=== PATIENT | female | born 1945 | race Caucasian/White ===

== ENCOUNTER 2017-07-05 08:48 | Day surgery (SDC) | payer MEDICARE, OTHER ==
[2017-07-04 11:11] VITALS: BMI 23.6
[~2017-07-05 08:48] MED LIST: ALPRAZolam 0.25 MG TAB PO PRN; ALPRAZolam 0.5 MG TAB PO PRN; ASPIRIN 325 MG TAB PO STA; ATORVASTATIN 80 MG TAB PO STA; NITROGLYCERIN SL TABS 0.4 MG TAB SUBLINGUAL PRN; SODIUM CHLORIDE 0.9% 1,000 ML in EMPTY BAG 1 BAG IV ONE
[2017-07-05 10:09] LABS: Anion Gap 11 mmol/L; Blood Urea Nitrogen 16 mg/dL (7-17); Calcium 8.9 mg/dL (8.4-10.2); Carbon Dioxide 22 mmol/L (22-30); Chloride 109 mmol/L (98-107); Glucose 98 mg/dL (74-99); Non-African American GFR(MDRD) >60 (>60 ml/min/1.73 sqM); Potassium 4.4 mmol/L (3.5-5.1); Sodium 142 mmol/L (137-145)
[2017-07-05] MEDS ORDERED: LIDOCAINE 2% INJ 20 MG/ML (20 ML MDV) ONE (10:51)
[2017-07-05] MEDS ORDERED: diphenhydrAMINE 50 MG/ML 1 ML VIAL ONE (10:52)
[2017-07-05] MEDS ORDERED: MIDAZOLAM 2 MG/2 ML VIAL ONE (10:52)
[2017-07-05] MEDS ORDERED: IV FLUID CONTINUATION 850 ML IV ONE (10:56)
[2017-07-05] MEDS ORDERED: diphenhydrAMINE 50 MG/ML 1 ML VIAL IVP ONE (10:56)
[2017-07-05] MEDS: MIDAZOLAM 2 MG/2 ML VIAL IVP ONE ×2 (10:56→11:07)
[2017-07-05] MEDS ORDERED: LIDOCAINE 2% INJ 20 MG/ML SQ ONE (11:06)
[2017-07-05] MEDS ORDERED: RX INFO: IV CONTRAST WAS GIVEN 1 EACH MISC MISCELLANE PRN (11:26)
[2017-07-05 11:27] LABS: Site PA
[2017-07-05 11:29] LABS: Site RA
[2017-07-05] MEDS ORDERED: ALBUTEROL INHALER 60 PUFF/8 GM INHALER INHALATION PRN (11:30)
[2017-07-05] MEDS ORDERED: ALBUTEROL NEBULIZED 2.5 MG/3 ML INHALATION PRN (11:30)
[2017-07-05] MEDS ORDERED: SODIUM CHLORIDE 0.9% 1,000 ML IV SCH (11:30)
[2017-07-05 11:31] LABS: Site RV
[2017-07-05 11:43] LABS: Basophils % (A) 0 %; CH 30.2; CHCM 32.5; Eosinophils # (A) 0.1 k/uL (0-0.7); Eosinophils % (A) 2 %; HCT 36.5 % (34.0-46.0); HDW 2.54; Luc # (Auto) 0.09; Luc % (Auto) 2; Lymphocytes # (A) 1.7 k/uL (1.0-4.8); Lymphocytes % (A) 38 %; MCH 30.6 pg (25.0-35.0); MCHC 32.8 g/dL (31.0-37.0); MCV 93.2 fL (80.0-100.0); Mean Platelet Volume 7.3; Monocytes # (A) 0.3 k/uL (0-1.0); Monocytes % (A) 8 %; Neutrophils # (A) 2.2 k/uL (1.3-7.7); Neutrophils % (A) 50 %; RBC 3.91 m/uL (3.80-5.40); RDW 13.1 % (11.5-15.5); WBC 4.4 k/uL (3.8-10.6); WBC (Perox) 4.77
[2017-07-05 12:15] VITALS: TEMP 98
--- NOTE | 2017-07-05 12:33 | CC ---
CARDIAC CATHETERIZATION REPORT DATE OF SERVICE: 07/05/2017 PROCEDURE: Right heart catheterization with thermodilution and Kurt cardiac outputs. Performed by Dr. Roger Sanchez. CLINICAL INFORMATION: Mrs. Gladys Erickson is a 71-year-old lady with a history of hypertension, history of shortness of breath, Seizure disorder with increasing symptoms of shortness of breath, was seen and evaluated by pulmonary hypertension specialist, Dr. White. She was advised a right heart catheterization. The risks, benefits, options and rationale were explained to the patient in great detail. PROCEDURE: Under local anesthesia and strict aseptic precautions, an 8-Ecuadorean introducer was placed in the right femoral vein. I used a balloon tipped rotation catheter and performed a right heart cath. I checked the pressures in the right atrium, right ventricle, pulmonary artery and pulmonary capillary wedge pressures were obtained. I also obtained a right atrial, right ventricular and pulmonary arterial saturations. Using a zoomed 96% arterial saturation, I will perform a cardiac output by Kurt method. The thermodilution cardiac output was also performed. The thermodilution cardiac output was 4.67 L. Patient tolerated the procedure well. The sheath was then taken out and she was sent to the room in a stable condition. CARDIAC CATHETERIZATION FINDINGS: Right atrial pressure was 4 mmHg. Right ventricular pressure was 30/4. Pulmonary capillary wedge pressure was 9 mmHg. Pulmonary arterial pressure was 30/10 with a mean of 17. Transpulmonary gradient was 8 mmHg suggesting that there is no evidence of primary pulmonary hypertension. The Kurt cardiac output was about 4 L. The thermodilution cardiac output was 4.67 L. There was no oxygen step-up. There is no evidence of any significant pulmonary hypertension. The pulmonary vascular resistance was 1.7 Wood units. FINAL IMPRESSION: The procedure was performed uneventfully. There was no evidence of any significant pulmonary hypertension. Results were discussed with the patient and family and she will be discharged later on today. Moderate conscious sedation was provided for a total duration of 30 minutes. Please send a copy of this to Dr. Abebe. ' MMDELIOL / LORIN: [id number] /
--- NOTE | 2017-07-05 12:33 | LTR ---
Date: DATE OF SERVICE: 07/05/2017 RE: Gladys Erickson Dear Dr. Abebe; Thank you for the opportunity to participate in the care of Mrs. Gladys Erickson. I am pleased to report to you that her right heart cath was performed uneventfully. She does not have any significant pulmonary hypertension. I expect she will be discharged later on today. Sincerely, MD MORIAH Edmonds / MADELEINE: [id number] /
--- NOTE | 2017-07-05 12:39 | LTR ---
Date: DATE OF SERVICE: 07/05/2017 RE: Gladys Erickson Dear Dr. Deng; Thank you for the opportunity to participate in the care of Mrs. Gladys Erickson. Please find enclosed my cardiac cath report for your records. The right heart cath as performed uneventfully. Patient does not have any significant pulmonary hypertension. The PA pressures were 30/10 with a mean of 17 and the wedge was 9 mmHg. Transpulmonary gradient was about 8 mmHg and there is no evidence of any pulmonary hypertension. Thank you for your referral and please call for questions. With kindest regards. Sincerely yours, Alexa Sanchez MD MMDELIOL / LORIN: [id number] /
[2017-07-05 14:17] VITALS: RESP 18
[2017-07-05 17:15] VITALS: PULSE 72
[2017-07-05 17:23] VITALS: BP 157/60
[2017-07-05] MEDS ORDERED: TOPIRAMATE 100 MG PO SCH (21:00)
[2017-07-05] MEDS ORDERED: MONTELUKAST 10 MG TAB PO SCH (21:00)
[2017-07-05] MEDS ORDERED: MORPHINE SULFATE IR 15 MG TABLET PO SCH (21:00)
[2017-07-05] MEDS ORDERED: PHENYTOIN SODIUM EXTENDED 100 MG CAP PO SCH (21:00)
[2017-07-05] MEDS ORDERED: busPIRone HCl 10 MG TAB PO SCH (21:00)
[2017-07-06] MEDS ORDERED: [UNRECOGNIZED DRUG - OTHER] PO SCH (09:00)
[2017-07-06] MEDS ORDERED: DULoxetine HCL 60 MG CAPSULE.DR PO SCH (09:00)
[2017-07-06] MEDS ORDERED: ESOMEPRAZOLE MAGNESIUM PO SCH (09:00)
== END 2017-07-05 17:00 | disposition home or self-care (01) ==
LOC: CATHCVL 08:48
PROVIDERS: ATTEND Internal Medicine Interventional Cardiology
DX: I27.2 Other secondary pulmonary hypertension (principal); J45.20 Mild intermittent asthma, uncomplicated; G47.33 Obstructive sleep apnea (adult) (pediatric); Z79.891 Long term (current) use of opiate analgesic; Z99.81 Dependence on supplemental oxygen; Z79.899 Other long term (current) drug therapy; Z88.2 Allergy status to sulfonamides; Z88.7 Allergy status to serum and vaccine; Z88.1 Allergy status to other antibiotic agents; Z91.040 Latex allergy status; Z88.5 Allergy status to narcotic agent; Z88.0 Allergy status to penicillin; Z91.013 Allergy to seafood
CPT/HCPCS: 93451; 80048; 85018; 82810; 85025; 99152; 99153 ×2; C1894 ×2; C1769 ×2; J2001; J2250; J1200

== ENCOUNTER 2019-01-28 07:14 | Day surgery (SDC) | payer MEDICARE, OTHER ==
[2019-01-24 09:06] VITALS: BMI 27.4
[~2019-01-28 07:14] MED LIST changes: -ALPRAZolam 0.25 MG TAB PO PRN; -ALPRAZolam 0.5 MG TAB PO PRN; -ASPIRIN 325 MG TAB PO STA; -ATORVASTATIN 80 MG TAB PO STA; +LACTATED RINGERS 1,000 ML IV SCH; +LIDOCAINE 1% 20 ML VIAL (10MG/ML) FOR IV START INTRADERMA PRN; -NITROGLYCERIN SL TABS 0.4 MG TAB SUBLINGUAL PRN; -SODIUM CHLORIDE 0.9% 1,000 ML in EMPTY BAG 1 BAG IV ONE
[2019-01-28 07:36] VITALS: TEMP 97
[2019-01-28] MEDS ORDERED: PROPOFOL 10 MG/ML 20 ML VIAL IV ONE (08:29)
[2019-01-28] MEDS ORDERED: LIDOCAINE 1% INJ 10MG/ML (20 ML MDV) ONE (08:29)
--- NOTE | 2019-01-28 08:55 | P.PCN ---
Date of Procedure: 01/28/19 Procedure(s) Performed: Procedure: Esophagogastroduodenoscopy and biopsy. Preoperative diagnosis: Gastroesophageal reflux and dysphagia. Postoperative diagnosis: 1. Small sliding hiatal hernia with no obvious esophagitis or complicated reflux disease. 2. Gastritis. 3. Biopsy obtained from the duodenum, antrum and esophagus. Preparation and sedation: Was provided by anesthesia. Brief clinical history: The patient is a 73-year-old female who was evaluated in the office earlier this month for chronic reflux symptoms. The patient has chronic globus sensation and complains of dysphagia and odynophagia with bread and meat. Her last EGD was in 2011. She is scheduled for this evaluation to assess for complicated reflux disease or other pathology. She has lost 10 pounds in the last 3 months. Procedure: With the patient on her left lateral decubitus position and after informed consent and adequate sedation, I passed the Olympus-GIF H190 video upper endoscope through the cricopharyngeus down the esophagus. GE junction was at 40 cm from the incisors and there was a small sliding hiatal hernia but no obvious esophagitis or complicated reflux disease. The endoscope was then passed into the stomach which was insufflated with air and inspected in detail including the retroflex view in the cardia. There was some mottling and erythema in the antrum but no ulcers or erosions. There was some erythema in the stomach and few small regenerative fundic polyps but no ulcers or tumors. Pyloric channel, duodenal bulb, post bulbar area and descending duodenum appeared within normal limits. I obtained biopsies from the duodenum, antrum and esophagus then the endoscope was withdrawn. The patient tolerated the procedure well. Plan: The patient was reassured. Will await biopsy results and make further plans based on her course and biopsy results. She will follow-up in the office as planned.
[2019-01-28 09:45] VITALS: RESP 18
[2019-01-28 09:47] VITALS: BP 124/77; PULSE 65
== END 2019-01-28 09:30 | disposition home or self-care (01) ==
LOC: ORWHC2ENDO 07:14
DX: K21.9 Gastro-esophageal reflux disease without esophagitis (principal); R63.4 Abnormal weight loss; K44.9 Diaphragmatic hernia without obstruction or gangrene; K29.50 Unspecified chronic gastritis without bleeding; Z68.27 Body mass index [BMI] 27.0-27.9, adult; J45.909 Unspecified asthma, uncomplicated; Z86.73 Personal history of transient ischemic attack (TIA), and cerebral infarction without residual deficits; M79.7 Fibromyalgia; M19.90 Unspecified osteoarthritis, unspecified site; G47.33 Obstructive sleep apnea (adult) (pediatric); Z99.81 Dependence on supplemental oxygen; Z88.5 Allergy status to narcotic agent; Z88.0 Allergy status to penicillin; Z88.2 Allergy status to sulfonamides; Z88.8 Allergy status to other drugs, medicaments and biological substances; Z91.041 Radiographic dye allergy status; Z91.040 Latex allergy status; R56.9 Unspecified convulsions; Z79.82 Long term (current) use of aspirin; Z79.891 Long term (current) use of opiate analgesic; Z79.899 Other long term (current) drug therapy
CPT/HCPCS: 43239; J2001; J2704; 88305

== ENCOUNTER → 2019-10-05 | Outpatient (CLI) | payer MEDICARE, OTHER ==
--- NOTE | 2019-10-05 10:11 | MR ---
EXAMINATION TYPE: MR lumbar spine wo con DATE OF EXAM: 10/05/2019 COMPARISON: NONE HISTORY: Low back pain TECHNIQUE: Multiplanar, multisequence imaging of the lumbar spine is performed without IV contrast. FINDINGS: Slight dextroconvex scoliotic curvature centered at L2-L3 level. Sagittal images of the lum bar spine show vertebral body height to appear satisfactory. Multilevel disc desiccation with moderat e disc space narrowing along with mild to moderate anterior spurring and heterogeneous Modic type II endplate changes L2-L3 level. Additional mild to moderate multilevel anterior spurring. The conus med ullaris is normal in position and signal ending L1-L2 disc space. Axial images show mild facet arthropathy at T12-L1 level.. Axial images at L1-L2 show mild/moderate broad-based disc bulge effacing the anterior thecal sac with mild to moderate facet degenerative changes and ligamentous flavum hypertrophy effacing posterior la teral thecal sac on axial image 25. Patent bilateral neural foramina. Axial images at L2-L3 level show moderate broad disc bulge effacing anterior thecal sac and mild face t arthropathy bilaterally. There is mild to moderate left and mild right-sided neural foraminal narro wing noted. Axial images at the L3-L4 level show mild/moderate facet degenerative changes and ligament flavum hyp ertrophy effacing posterior lateral thecal sac with mild/moderate broad disc bulge effacing the anter ior thecal sac. There is mild left greater than right bilateral neural foraminal narrowing. Axial images at L4-L5 level moderate to advanced facet degenerative changes and ligament hypertrophy effacing posterior lateral thecal sac. There is moderate broad-based disc bulge effacing the anterior thecal sac. Bilateral neural foramina are patent. Axial images at the L5-S1 levels moderate facet degenerative changes with central disc protrusion min imally effacing anterior thecal sac, bilateral neural foramina are patent. There is some mild generalized posterior paraspinal musculature atrophy bilaterally. Some motion meenakshi fact degradation noted. IMPRESSION: Multilevel degenerative changes in the lumbar spine as detailed above..
== END | disposition home or self-care (01) ==
LOC: RADMRIMAIN 09:12
PROVIDERS: ATTEND Physical Medicine & Rehabilitation
DX: M47.816 Spondylosis without myelopathy or radiculopathy, lumbar region (principal); G89.4 Chronic pain syndrome
CPT/HCPCS: 72148

== ENCOUNTER → 2021-06-01 | Outpatient (CLI) | payer MEDICARE ==
--- NOTE | 2021-06-01 12:03 | BD ---
EXAMINATION TYPE: Axial Bone Density PT ON O2 WITH WHEELIE WALKER AND [facility] DOG DATE OF EXAM: 06/01/2021 COMPARISON: NONE CLINICAL HISTORY: 75 YR OLD FEMALE.....ICD-10 CODE: Z78.0 POST TANYA W/O HRT Height: 64.7 Weight: 170 FRAX RISK QUESTIONS: Glucocorticoids (More than 3mos): YES (Ex: prednisone, prednisolone, methylprednisolone, dexamethasone, and hydrocortisone). History of Fracture in Adulthood: YES Secondary Osteoporosis: YES 3. Menopause before 45: YES Rheumatoid Arthritis: YES RISK FACTORS HISTORY OF: RT THUMB AND WRIST History of Wrist Fracture: BROKEN RT WRIST, AND LT WRIST SURG AN ADULT Surgery to Spine TO NECK ONLY Family History of Osteoporosis: UNSURE Postmenopausal woman: HYST AT AGE 30, WITH HORMONES FOR 1-2 YRS Lost more than 2 inches in height since high school: YES Poor Health: YES, USING SERVICE DOG HERE AND NOW Hyperparathyroidism: NO Adrenal Insufficiency: NO RHEUMATOID ARTHRITIS MEDICATIONS: Prednisone or other steroids: YES, ASTHMA, COPD, USING OXYGEN FOR MANY YRS Thyroid Medications: NONE NOW Osteoporosis Medications: NONE, INTERFERES WITH DILANTIN, SEIZURE MEDS Additional Medications: TOPAMAX, DILANTIN (SEIZURES), BUSPIRONE, REFLUX MED, VIT D, Additional History: SEIZURES, ASTHMA, ARTHRITIS, FIBROMYALGIA, RA EXAM MEASUREMENTS: Bone mineral densitometry was performed using the [facility] [employer] [facility]. Bone mineral density as measured about the Lumbar spine is: ----- L1-L4(G/cm2): 1.021 T Score Values are as follows: ----- L1: -1.1 ----- L2: -1.8 ----- L3: -1.5 ----- L4: -1.2 ----- L1-L4: -1.3 Bone mineral density FIRST BONE DENSITY AT [facility] Bone mineral density about the R hip (g/cm2): 0.762 Bone mineral density about the L hip (g/cm2): 0.770 T Score values are as follows: -----R Neck: -2.1 -----L Neck: -2.3 -----R Total: -2.0 -----L Total: -1.9 Bone mineral density FIRST BONE DENSITY AT [facility] FRAX%s: THERE IS A 32.9% CHANCE FOR A MAJOR OSTEOPOROTIC FX AND A 10.5% FOR HIP......PROBABILITY F OR FX IN 10 YRS TIME IMPRESSION: Osteopenia (T Score between -2.5 and -1). There is slightly increased risk of fracture and the patient may be considered for treatment. Re-Screen 2-5 years. NOTE: T-SCORE=SD OF THE YOUNG ADULT MEAN.
== END | disposition home or self-care (01) ==
LOC: RADBDWWP 10:20
PROVIDERS: ATTEND Family Medicine
DX: M85.80 Other specified disorders of bone density and structure, unspecified site (principal); Z78.0 Asymptomatic menopausal state
CPT/HCPCS: 77080

== ENCOUNTER → 2022-04-21 | Outpatient (CLI) | payer MEDICARE ==
[2022-04-21 18:24] LABS: Basophils # (A) 0.03 X 10*3/uL (0.00-0.10); Basophils % (A) 0.7 %; Eosinophils # (A) 0.03 X 10*3/uL (0.04-0.35); Eosinophils % (A) 0.7 %; HCT 42.5 % (37.2-46.3); HGB 13.4 g/dL (12.0-15.0); Immature Grans, Automated 0.2 %; Lymphocytes # (A) 1.13 X 10*3/uL (0.90-5.00); MCH 30.2 pg (27.0-32.0); MCHC 31.5 g/dL (32.0-37.0); MCV 95.9 fL (80.0-97.0); Mean Platelet Volume 10.9 fL (9.5-12.2); Monocytes # (A) 0.77 X 10*3/uL (0.20-1.00); Monocytes % (A) 18.4 %; NRBC Per 100 WBC 0 /100 WBCS (0.0-0.0); Neutrophils # (A) 2.22 X 10*3/uL (1.80-7.70); Platelet Count 242 X 10*3/uL (140-440); RBC 4.43 X 10*6/uL (4.10-5.20); RDW 13.2 % (11.5-14.5); WBC 4.19 X 10*3/uL (4.50-10.00)
[2022-04-21 18:46] LABS: ALT 19 U/L (8-44); AST 18 U/L (13-35); African American GFR (CKD) 87.3 (60.0-200.0); Albumin 4.5 g/dL (3.8-4.9); Albumin/Globulin Ratio 1.81 (1.60-3.17); Alkaline Phosphatase 104 U/L (41-126); BUN/Creat Ratio 19.56 Ratio (12.00-20.00); Blood Urea Nitrogen 15.1 mg/dL (9.0-27.0); Calcium 9.2 mg/dL (8.7-10.3); Carbon Dioxide 23.9 mmol/L (20.0-27.5); Chloride 104 mmol/L (96-109); Chol/HDL Ratio 2.91 Ratio; Globulin 2.5 g/dL (1.6-3.3); Glucose 93 mg/dL (70-110); LDL Cholesterol,Calculated 100.6 mg/dL (0.0-131.0); Non-African American GFR(CKD) 75.3 (60.0-200.0); Phenytoin (Dilantin) 13.3 ug/mL (10.0-20.0); Potassium 4.7 mmol/L (3.5-5.5); Sodium 139 mmol/L (135-145); VLDL Calculation 16.28 mg/dL (5.00-40.00)
== END | disposition home or self-care (01) ==
LOC: LABWHC1 11:06
PROVIDERS: ATTEND Psychiatry & Neurology Neurology
DX: E78.5 Hyperlipidemia, unspecified (principal); G47.30 Sleep apnea, unspecified; G40.109 Localization-related (focal) (partial) symptomatic epilepsy and epileptic syndromes with simple partial seizures, not intractable, without status epilepticus; R73.9 Hyperglycemia, unspecified; R00.0 Tachycardia, unspecified
CPT/HCPCS: 36415; 80053; 80061; 80185; 80201; 83036; 84443; 85025